=== PATIENT | male | born 1975 | race Caucasian/White ===

== ENCOUNTER 2017-08-04 04:58 | Emergency (ER) | payer OTHER ==
[~2017-08-04] VITALS: Ht 172.7 cm; Wt 110.5 kg
[~2017-08-04 04:58] MED LIST: AUGMENTIN875 MG PO; CLINDAMYCIN HC300 MG PO; INDOCIN25 MG PO; LIDOCAINE20 MG/1 M5 PO; NORCO 5/3251 TABLET PO; PEN-VEE K,VEET500 MG PO; ULTRACET1 TABLET PO
[2017-08-04 06:37] LABS: HEMATOCRIT 50.3 % (38.0-50.0); MCH 31.6 PG (29.0-34.0); MCHC 33.6 G/DL (30.0-36.0); MCV 94.2 FL (86-99); MEAN PLAT.VOLUME 11.4 uM^3 (9.0-12.4); PLATELET COUNT 178 K/uL (156-360); RBC DIS.WIDTH-SD 44.6 % (39-53); RED BLOOD COUNT 5.34 M/uL (4.00-5.50); WHITE BLOOD COUNT 11.6 K/uL (4.1-10.2)
[2017-08-04 06:45] LABS: CHLORIDE 102 mEq/L (99-109); POTASSIUM 3.6 mEq/L (3.7-5.4); SODIUM 135 mEq/L (136-147)
[2017-08-04 06:46] LABS: GLUCOSE 144 mg/dL (70-99)
[2017-08-04 06:48] LABS: ANION GAP 8 MEQ/L (2-14)
[2017-08-04 06:50] LABS: GFR ESTIMATE (CALCULATED) > 59 mL/min/
[2017-08-04 06:51] LABS: UREA NITROGEN (BUN) 18 mg/dL (9-23)
[2017-08-04] MEDS ORDERED: PERCOCET 5/31 TABLET PO (08:30)
[2017-08-04] MEDS ORDERED: AUGMENTIN875 MG PO (08:30)
[2017-08-04 08:57] VITALS: BP 146/94
== END 2017-08-04 08:59 | disposition home or self-care (01) ==
LOC: EME 04:58
PROVIDERS: Emergency Medicine
PROC: 0C9 Mouth and Throat, Drainage (ICD-10-PCS; principal; 2017-08-04)
DX: K12.2 Cellulitis and abscess of mouth (principal); L03.213 Periorbital cellulitis; J32.0 Chronic maxillary sinusitis; F17.200 Nicotine dependence, unspecified, uncomplicated
CPT/HCPCS: 70487; 80048; 85027; 99281; 99285; J0295; J1885; J7030; J7050

== ENCOUNTER 2017-12-29 22:24 | Emergency (ER) | payer OTHER ==
[~2017-12-29] VITALS: Ht 170.2 cm; Wt 108.4 kg
[~2017-12-29 22:24] MED LIST changes: +PERCOCET 5/31 TABLET PO
[2017-12-30] MEDS ORDERED: MOTRIN800 MG PO (01:30)
[2017-12-30] MEDS ORDERED: NORCO 5/3251 TABLET PO (01:30)
[2017-12-30] MEDS ORDERED: CLEOCIN300 MG PO (01:30)
[2017-12-30 01:59] VITALS: BP 144/67
== END 2017-12-30 02:01 | disposition home or self-care (01) ==
LOC: EME 22:24
PROC: 0C95XZZ Drainage of Upper Gingiva, External Approach (ICD-10-PCS; principal; 2017-12-29)
DX: K04.7 Periapical abscess without sinus (principal); K02.9 Dental caries, unspecified; F17.200 Nicotine dependence, unspecified, uncomplicated
CPT/HCPCS: 99281; 99284; J1885; J2405; J7030